=== PATIENT | male | born 1965 | race Caucasian/White ===

== ENCOUNTER 2018-01-24 05:19 | Inpatient (IN) | END 2018-01-25 14:18 | disposition home or self-care (01) | DRG 192 ==

== ENCOUNTER 2018-04-14 00:31 | Emergency (ER) | END 2018-04-14 04:12 | disposition home or self-care (01) ==

== ENCOUNTER 2018-04-20 09:35 | Emergency (ER) | END 2018-04-20 12:30 | disposition home or self-care (01) ==

== ENCOUNTER 2018-07-17 11:08 | Emergency (ER) | END 2018-07-17 14:25 | disposition home or self-care (01) ==

== ENCOUNTER 2018-11-01 14:12 | Emergency (ER) | payer OTHER ==
[~2018-11-01] VITALS: Ht 177.8 cm; Wt 82.4 kg
[~2018-11-01 14:12] MED LIST: ALBU8.5H8 INH; ASPI81TA52 PO; ATOR10TA65 PO; ERGO2000 PO; FLUT12HF4 IH; IBUP-1542 PO; LEVO150T64 PO; LISI-471 PO
[2018-11-01 14:20] VITALS: Ht 177.8 cm; Wt 82.4 kg
[2018-11-01] MEDS ORDERED: IPRATROPIUM (NEB) 0.5 MG/2.5 ML AMP NEB STA ×2 (15:19→17:09)
[2018-11-01] MEDS ORDERED: METHYLPREDNISOLONE 40 MG INJ IV STA (15:19)
[2018-11-01] MEDS ORDERED: LEVALBUTEROL (NEB) 1.25 MG/0.5 ML AMP INH STA (15:19)
[2018-11-01] MEDS ORDERED: METHYLPREDNISOLONE 40 MG INJ IM ONE (16:00)
[2018-11-01 17:00] VITALS: BP 132/81
[2018-11-01] MEDS ORDERED: LEVALBUTEROL (NEB) 0.63 MG/3 ML AMP INH STA (17:09)
[2018-11-01 18:00] VITALS: PULSE 104; RESP 22
[2018-11-01] MEDS ORDERED: LEVO750T8 PO (19:22)
[2018-11-01] MEDS ORDERED: ALBU18HF INHALATION (19:22)
[2018-11-01] MEDS ORDERED: FLUT12HF IH (19:22)
[2018-11-01] MEDS ORDERED: PRED20TA PO (19:22)
[2018-11-01] MEDS ORDERED: D-ME118S24 PO (19:23)
--- NOTE | 2018-11-01 19:24 | ERD ---
ER Documentation Chief Complaint Chief Complaint sob, cough x 2 wks ROS All systems reviewed and are negative except as per history of present illness. Medications Home Meds Active Scripts D-Methorphan Hb/P-Epd HCl/Bpm (Exqvzezpks-Xmvamdphnei-Ad Syr) 118 Ml Syrup, 5 ML PO Q4H PRN for COUGH for 7 Days, #1 BOTTLE Prov:TANYA BERGERON DO 11/01/18 Levofloxacin* (Levofloxacin*) 750 Mg Tablet, 750 MG PO DAILY for copd for 5 Days, #5 TAB Prov:TANYA BERGERON DO 11/01/18 Prednisone* (Prednisone*) 20 Mg Tab, 20 MG PO DAILY for copd for 5 Days, #5 TAB Prov:TANYA BERGERON DO 11/01/18 Salmeterol Xinaf-Fluticasone* (Advair HFA*) 45/212 Aerosol Inhaler, 2 INH IH BID for copd, #1 INHALER 2 Refills Prov:TANYA BERGERON DO 11/01/18 Albuterol Sulfate* (Ventolin HFA*) 18 Gm Hfa.aer.ad, 2 PUFF INHALATION Q4H PRN for shortness of breath, #1 INHALER 2 Refills Prov:TANYA BERGERON DO 11/01/18 Ibuprofen* (Motrin*) 600 Mg Tab, 600 MG PO Q6H PRN for PAIN AND OR ELEVATED TEMP, #30 TAB Prov:KESHAV ALEJANDRO 07/17/18 Reported Medications Ergocalciferol (Vitamin D2) (VITAMIN D2) 2,000 Unit Tablet, 2000 UNIT PO DAILY, TAB 07/17/18 Salmeterol Xinaf-Fluticasone* (Advair HFA*) 230/12 Aerosol Inhaler, 2 INH IH BID, #1 INHALER 232/14 07/17/18 Albuterol Sulfate* (Proair HFA*) 8.5 Gm Hfa.aer.ad, 2 PUFF INH Q4H PRN for WHEEZING AND SOB, #1 INHALER 01/24/18 Aspirin (Low Dose Aspirin) 81 Mg Tablet.dr, 81 MG PO DAILY, #30 TAB 01/24/18 Levothyroxine Sodium* (Levoxyl*) 150 Mcg Tablet, 150 MCG PO BEFORE BREAKFAST, #30 TAB 01/24/18 Atorvastatin Calcium (Atorvastatin Calcium) 10 Mg Tablet, 10 MG PO QHS, #30 TAB 01/24/18 Lisinopril* (Lisinopril*) 20 Mg Tablet, 20 MG PO DAILY, #30 TAB 01/24/18 Allergies Allergies: Coded Allergies: No Known Allergy (Unverified , 07/17/18) PMhx/Soc History of Surgery: No Anesthesia Reaction: No Hx Neurological Disorder: No Hx Respiratory Disorders: Yes (COPD) Hx Cardiac Disorders: Yes (HTN) Hx Psychiatric Problems: No Hx Miscellaneous Medical Probl: Yes (HYPOTHYROID ) Hx Alcohol Use: No Hx Substance Use: No Hx Tobacco Use: Yes Smoking Status: Current every day smoker Physical Exam Vitals Vital Signs Date Temp Pulse Resp B/P (MAP) Pulse Ox O2 O2 Flow FiO2 Time Delivery Rate 11/01/18 104 22 91 Room Air 18:00 11/01/18 105 20 93 21 17:22 11/01/18 98 17 132/81 91 Room Air 17:00 (98) 11/01/18 115 20 93 21 15:56 11/01/18 97.4 110 18 141/72 93 14:20 (95) Physical Exam Const: No acute distress Head: Atraumatic Eyes: Normal Conjunctiva ENT: Normal External Ears, Nose and Mouth. Neck: Full range of motion. No meningismus. Resp: Clear to auscultation bilaterally Cardio: Regular rate and rhythm, no murmurs Abd: Soft, non tender, non distended. Normal bowel sounds Skin: No petechiae or rashes Back: No midline or flank tenderness Ext: No cyanosis, or edema Neur: Awake and alert Psych: Normal Mood and Affect Result Diagram: 11/01/18 1600 Results 24 hrs Laboratory Tests Test 11/01/18 16:00 White Blood Count 11.0 10^3/ul Red Blood Count 5.07 10^6/ul Hemoglobin 15.8 g/dl Hematocrit 47.6 % Mean Corpuscular Volume 93.9 fl Mean Corpuscular Hemoglobin 31.2 pg Mean Corpuscular Hemoglobin Concent 33.2 g/dl Red Cell Distribution Width 12.6 % Platelet Count 367 10^3/UL Mean Platelet Volume 8.8 fl Immature Granulocytes % 0.400 % Neutrophils % 70.6 % Lymphocytes % 15.2 % Monocytes % 10.8 % Eosinophils % 2.5 % Basophils % 0.5 % Nucleated Red Blood Cells % 0.0 /100WBC Immature Granulocytes # 0.040 10^3/ul Neutrophils # 7.8 10^3/ul Lymphocytes # 1.7 10^3/ul Monocytes # 1.2 10^3/ul Eosinophils # 0.3 10^3/ul Basophils # 0.1 10^3/ul Nucleated Red Blood Cells # 0.0 10^3/ul Current Medications Medications Dose Sig/Mindi Start Time Status Last (Trade) Ordered Route PRN Stop Time Admin Dose Reason Admin Ipratropium 0.5 mg ONCE STAT 11/01/18 DC 11/01/18 [place] NEB 15:19 15:54 (Atrovent 11/01/18 15:25 0.02% (Neb)) 1.25 mg ONCE STAT 11/01/18 DC 11/01/18 Levalbuterol INH 15:19 15:54 (Xopenex 11/01/18 15:25 Neb) 40 mg ONCE STAT 11/01/18 DC Methylprednis IV 15:19 olone Sodium 11/01/18 15:41 Succinate (Solu-Medrol) 40 mg ONCE ONCE 11/01/18 DC 11/01/18 Methylprednis IM 16:00 15:47 olone Sodium 11/01/18 16:01 Succinate (Solu-Medrol) Ipratropium 0.5 mg ONCE STAT 11/01/18 DC 11/01/18 [place] NEB 17:09 17:21 (Atrovent 11/01/18 17:12 0.02% (Neb)) 0.63 mg ONCE STAT 11/01/18 DC 11/01/18 Levalbuterol INH 17:09 17:21 (Xopenex 11/01/18 17:12 Neb) Departure Diagnosis: Primary Impression: COPD exacerbation Condition: Fair Patient Instructions: Care for COPD, COPD: Using Inhalers Referrals: [facility] YOU HAVE RECEIVED A MEDICAL SCREENING EXAM AND THE RESULTS INDICATE THAT YOU DO NOT HAVE A CONDITION THAT REQUIRES URGENT TREATMENT IN THE EMERGENCY DEPARTMENT. FURTHER EVALUATION AND TREATMENT OF YOUR CONDITION CAN WAIT UNTIL YOU ARE SEEN IN YOUR DOCTORS OFFICE WITHIN THE NEXT 1-2 DAYS. IT IS YOUR RESPONSIBILITY TO MAKE AN APPOINTMENT FOR FOLOW-UP CARE. IF YOU HAVE A PRIMARY DOCTOR --you should call your primary doctor and schedule an appointment IF YOU DO NOT HAVE A PRIMARY DOCTOR YOU CAN CALL OUR PHYSICIAN REFERRAL HOTLINE AT IF YOU CAN NOT AFFORD TO SEE A PHYSICIAN YOU CAN CHOSE FROM THE FOLLOWING COUNT INCLUDES THE [facility]ICS [facility] [address] [facility] [address] [facility] [facility] [address] [facility]. [facility] [address] [facility]. [facility] [phone] [id number] [facility]. [facility] [address] Additional Instructions: Call your primary care doctor TOMORROW for an appointment during the next 1-2 days.See the doctor sooner or return here if your condition worsens before your appointment time. Follow up with lung doctor TANYA BERGERON DO Nov 01, 2018 19:24
== END 2018-11-01 19:46 | disposition home or self-care (01) ==
LOC: FTE 14:12
DX: J44.1 Chronic obstructive pulmonary disease with (acute) exacerbation (principal); F17.210 Nicotine dependence, cigarettes, uncomplicated; I10 Essential (primary) hypertension; E03.9 Hypothyroidism, unspecified; Z79.82 Long term (current) use of aspirin
CPT/HCPCS: 71045; 85025; 93005; 94640; 94664; 96372; J2920; Z7502; Z7610